=== PATIENT | female | born 1970 | race Caucasian/White ===

== ENCOUNTER 2018-09-17 21:14 | Emergency (ER) | payer MEDICARE ==
[~2018-09-17] VITALS: Ht 157.5 cm; Wt 100.0 kg
[2018-09-17 21:25] VITALS: BP 142/81
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
[2018-09-17] MEDS ORDERED: ZIPRASIDONE 20 MG INJ IM ONE ×2 (21:33→22:00)
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
--- NOTE | 2018-09-17 22:11 | NUR ---
CLINICAL SCREEN UPDATED. LAB IN TO DRAW.
[2018-09-17 22:20] LABS: BASOPHILS # (AUTO) 0.05 x10^3/uL (0-0.1); BASOPHILS % (AUTO) 0 % (0-1); EOSINOPHILS # (AUTO) 0.02 x10^3/uL (0-0.4); EOSINOPHILS % (AUTO) 0 % (1-7); LYMPHOCYTES # (AUTO) 1.54 x10^3/uL (1-3.4); LYMPHOCYTES % (AUTO) 10 % (22-44); MD NO; MEAN CORPUSCULAR HEMOGLOBIN 27.6 pg (27.0-34.8); MEAN CORPUSCULAR HGB CONC 31.8 g/dL (32.4-35.8); MEAN CORPUSCULAR VOLUME 86.9 fL (80-100); MEAN PLATELET VOLUME 8.2 fL (7.4-10.4); MONOCYTES # (AUTO) 0.74 x10^3/uL (0.2-0.8); MONOCYTES % (AUTO) 5 % (2-9); NEUTROPHILS % (AUTO) 85 % (42-75); PLATELET COUNT 160 x10^3/uL (130-400); RED BLOOD COUNT 4.79 x10^6/uL (3.82-5.3); RED CELL DISTRIBUTION WIDTH 15.6 % (9.6-15.2)
[2018-09-17 22:31] LABS: ALANINE AMINOTRANSFERASE 24 U/L (12-78); ALBUMIN 3.4 g/dL (3.4-5.0); ANION GAP 16 mmol/L (5-15); CALCIUM 8.1 mg/dL (8.5-10.1); CHLORIDE 104 mmol/L (98-107); CREATININE 1.21 mg/dL (0.55-1.02); SALICYLATE LEVEL 10.5 mg/dL (2.8-20.0)
[2018-09-17 22:36] LABS: ALKALINE PHOSPHATASE 165 U/L (45-117); BILIRUBIN,TOTAL 1.1 mg/dL (0.2-1.0); TOTAL PROTEIN 7.2 g/dL (6.4-8.2)
[2018-09-17 22:40] LABS: ACETAMINOPHEN < 2 mcg/mL (10-30)
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
--- NOTE | 2018-09-17 23:49 | NUR ---
SECURITY TO ROOM TO REMOVE RESTRAINTS, NOTES THAT PT IS CALM AND COOPERATIVE AND APOLOGIZED TO SECURITY FOR THE PROBLEMS.
--- NOTE | 2018-09-18 00:01 | NUR ---
PT RESTING COMFORTABLY IN [facility]. ROOM REMAINS SECURE. SITTER PRESENT
--- NOTE | 2018-09-18 01:23 | NUR ---
PT CONTINUES TO REST CALMLY IN GURNEY W/ EYES CLOSED. EVEN/REGULAR RESPIRATIONS NOTED. ROOM REMAINS SECURE. SITTER PRESENT
--- NOTE | 2018-09-18 01:52 | NUR ---
PT AWAKE/TALKING TO HERSELF. NAD NOTED; CALM
--- NOTE | 2018-09-18 02:28 | NUR ---
PT FOUND TO BE INCONTINENT OF URINE; URINE SOAKED LINENS AND FLOOR NOTED. PT TRANSFERRED SELF TO CHAIR AT BEDSIDE WO ASSISTANCE. BED CLEANED. LINENS CHANGED. UNABLE TO OBTAIN DOA FROM SOILED LINENS. BEDSIDE COMMODE IN PLACE, PT AWARE OF NEED FOR UA. PT AWAKE/CALM AND COOPERATIVE AT THIS TIME. PT DENIES SI. ERP AWARE.
--- NOTE | 2018-09-18 03:15 | NUR ---
PT SITTING UP ON GURNEY WATCHING TC, PROVIDED PT WITH SNACK AND DRINK SI PRECAUTIONS MAINTAINED, ROOM SECURED, SITTER AT DOORWAY FOR CONTINOUS MONITORING.
[2018-09-18 03:52] LABS: AMPHETAMINE SCREEN, URINE Positive (Negative); BARBITURATE SCREEN, URINE Negative (Negative); BENZODIAZEPINE SCREEN, URINE Negative (Negative); CANNABINOID SCREEN, URINE Negative (Negative); COCAINE SCREEN, URINE Negative (Negative); METHADONE SCREEN, URINE Negative (Negative); OPIATE SCREEN, URINE Negative (Negative)
--- NOTE | 2018-09-18 04:02 | NUR ---
PT SITTING UP WATCHING TC, DENIES NEEDS, NAD, SITTER AT DOORWAY FOR CONTINOUS MONITORING.
--- NOTE | 2018-09-18 04:29 | NUR ---
SOC ON TELEPHONE, UPDATED ON PT STATUS, H/X, VS. SOC TO CALL FOR CONSULT WITH PT.
--- NOTE | 2018-09-18 04:32 | NUR ---
TELE PSYCH CONSULT IN PROCESS
--- NOTE | 2018-09-18 05:08 | NUR ---
PT SITTING UP WATCHING TV, NAD, PROVIDED PT WITH SOCKS PER HER REQUEST, SITTER AT DOORWAY FOR CONTINOUS MONITORING.
--- NOTE | 2018-09-18 05:39 | NUR ---
provided pt with personal belongings x2 bags
== END 2018-09-18 06:04 | disposition home or self-care (01) ==
LOC: ED 09-18 03:03
DX: F43.22 Adjustment disorder with anxiety (principal); F15.10 Other stimulant abuse, uncomplicated; E11.22 Type 2 diabetes mellitus with diabetic chronic kidney disease; N18.3 Chronic kidney disease, stage 3 (moderate); F17.200 Nicotine dependence, unspecified, uncomplicated; Z72.9 Problem related to lifestyle, unspecified
CPT/HCPCS: 36415; 80053; 80307; 80329; 84703; 85025; 99284; J3486; G0480